=== PATIENT | male | born 1965 | race Caucasian/White ===

== ENCOUNTER 2025-07-23 08:53 | Inpatient (IN) ==
--- NOTE | 2025-06-20 14:18 | PAT Medication Instructions ---
Medication Instructions Date of Service June 20, 2025 Home Medications adalimumab 40 mg/0.8 mL subcutaneous syringe kit (Humira) 40 mg subcut Q14D atorvastatin 10 mg tablet 10 mg PO QPM brimonidine 0.2 %-timolol 0.5 % eye drops 1 drp OPR BID budesonide 9 mg capsule,extended release 9 mg PO QAM cyanocobalamin (vitamin B-12) 500 mcg tablet (Vitamin B-12) 500 mcg PO QAM lisinopril 20 mg tablet 20 mg PO QPM rivaroxaban 10 mg tablet (Xarelto) 10 mg PO QPM wheat dextrin 1 gram tablet (Benefiber (wheat dextrin)) 1 g PO BID ASK your prescriber and surgeon adalimumab 40 mg/0.8 mL subcutaneous syringe kit (Humira) 40 mg subcut Q14D rivaroxaban 10 mg tablet (Xarelto) 10 mg PO QPM DO NOT take the morning of surgery budesonide 9 mg capsule,extended release 9 mg PO QAM cyanocobalamin (vitamin B-12) 500 mcg tablet (Vitamin B-12) 500 mcg PO QAM wheat dextrin 1 gram tablet (Benefiber (wheat dextrin)) 1 g PO BID Take morning of surgery With a small sip of water, OTHERWISE NOTHING TO EAT OR DRINK AFTER MIDNIGHT: brimonidine 0.2 %-timolol 0.5 % eye drops 1 drp OPR BID Take evening before surgery atorvastatin 10 mg tablet 10 mg PO QPM brimonidine 0.2 %-timolol 0.5 % eye drops 1 drp OPR BID lisinopril 20 mg tablet 20 mg PO QPM wheat dextrin 1 gram tablet (Benefiber (wheat dextrin)) 1 g PO BID Other Notes If you have any questions please call us at [phone] or [phone] or [phone] or [phone]
--- NOTE | 2025-06-26 14:51 | Anesthesiology Consultation ---
Date of Service June 26, 2025 Assessment & Plan (1) Encounter for pre-operative examination: - awaiting surgeon ordered PCP clearance, Dr. Ray Holly. Chart Review Chart Review: Pending: Refer to Additional Notes / Consult section and Patient seen in Pre Admission Testing Teaching & Discussion Pre-Anesthesia Teaching/Discussion Notes: Instructed NPO after midnight before surgery, except medications with 15 cc of water. Medication instructions provided according to the PAT guidelines. History Surgery Operation Date: 07/23/25 07:45 Proposed Procedures p L3-S1 Decompression and Fusion - Jim Thompson DO Height/Weight Height: 5 ft 11 in Weight: 103.1 kg Allergies Allergy/AdvReac Type Severity Reaction Status Date / Time amoxicillin Allergy Hives Verified 06/20/25 13:16 Medications Home Medications Medication Instructions Recorded Confirmed Last Taken adalimumab 40 mg/0.8 mL 40 mg subcut Q14D 06/20/25 06/20/25 Unknown subcutaneous syringe kit (Humira) atorvastatin 10 mg tablet 10 mg PO QPM 06/20/25 06/20/25 Unknown brimonidine 0.2 %-timolol 0.5 % 1 drp OPR BID 06/20/25 06/20/25 Unknown eye drops budesonide 9 mg capsule,extended 9 mg PO QAM 06/20/25 06/20/25 Unknown release cyanocobalamin (vitamin B-12) 500 500 mcg PO QAM 06/20/25 06/20/25 Unknown mcg tablet (Vitamin B-12) lisinopril 20 mg tablet 20 mg PO QPM 06/20/25 06/20/25 Unknown rivaroxaban 10 mg tablet (Xarelto) 10 mg PO QPM 06/20/25 06/20/25 Unknown wheat dextrin 1 gram tablet 1 g PO BID 06/20/25 06/20/25 Unknown (Benefiber (wheat dextrin)) Past Medical History Medical History (Updated 06/26/25 @ 15:39 by Maryuri Dubon PA-C) Fracture of fifth metatarsal bone of left foot (~2023) Fracture discovered late 2023 Follows with podiatry-"no intervention deemed necessary by doctor" Still has discomfort from it "as it is still healing" HLD (hyperlipidemia) HTN (hypertension) controlled, stable per pt Hx of deep venous thrombosis (~2022) 2023, behind left knee, unprovoked per cardio, currently on Xarelto Hx of vertigo "Very rare" Increased intraocular pressure follows with ophthalmology-s/p laser treatment, right eye did not respond as well-using eye drops regularly Peripheral neuropathy feet Tinnitus intermittent, not always associated with vertigo Ulcerative colitis reports recent flare currently tapering off budesonide Patient denies h/o stroke, seizures, heart attack, heart failure, DM, or blood transfusions. Exercise / Class Metabolic Activity II 4-5 Yardwork/Stairs/Walk up hill (denies chest discomfort or shortness of breath with one flight of stairs) Past Family History Family History Father Prostate cancer Mother Stomach cancer Grandfather (Paternal) Colorectal cancer Brother Tremor of both hands Past Surgical History Surgical History H/O vasectomy done at same time as lap elder History of colonoscopy History of esophagogastroduodenoscopy (EGD) Hx laparoscopic cholecystectomy vasectomy done at same time Hx of LASIK Hx of umbilical hernia repair ~2021 Hx of wisdom tooth extraction Past Anesthesia History No Hx of Anesthesia Complications and Other (father () awareness during anesthesia) History of PONV No Hx of PONV and Hx of Motion Sickness Social History Smoking Status: Never smoker Do You Dip or Chew Tobacco: No Hx Alcohol Use: No Hx Substance Use: No substance use type: does not use Review of Systems Light snoring, denies witnessed apneas. Patient denies chest pain, shortness of breath, dyspnea on exertion, fever, chills, cough, wheezing, or palpitations. Physical Exam Vital Signs Vitals BP 155/99 (Patient expresses some stress regarding surgery, he also had caffeine today) P 54 TEMP 98.1 SP02 96% on RA RESP 18 Physical Patient resting comfortably in chair in no acute distress, alert and oriented, responding appropriately throughout visit Full cervical extension range of motion without pain TMD 3.5 finger breadths Mallampati Score 2 Dentition: intact, denies chipped or loose teeth, caps/crowns, implants or bridges Lungs: normal respiratory effort. Good air movement, clear throughout to auscultation, no adventitious breath sounds Cardiac: regular rate and rhythm, no murmurs noted Carotid arteries: negative bruit bilat Lab Results Anesthesia Preop Results Results Anesthesia Widget: WBC 8.60 K/ul (4.8-10.8) 06/26/25 Hgb 15.5 g/dl (14.0-18.0) 06/26/25 Hct 47.0 % (42.0-52.0) 06/26/25 Plt 195 K/uL (130-400) 06/26/25 Na 140 mmol/L (136-145) 06/26/25 K 4.6 mmol/L (3.5-5.1) 06/26/25 Cl 103 mmol/L (98-107) 06/26/25 CO2 32 mmol/L (21-32) 06/26/25 BUN 24 mg/dl (6-23) H 06/26/25 Creat 1.13 mg/dl (0.6-1.4) 06/26/25 Glucose Level 94 mg/dl (70-99(Fasting)) 06/26/25 PT 10.3 Seconds (9.0-12.0) 06/26/25 PTT 25 Seconds (21-31) 06/26/25 INR 0.9 (0.9-1.1) 06/26/25 Urine Color Yellow 06/26/25 Urine Appearance Clear (Clear) 06/26/25 Urine pH 6.0 (4.5-7.5) 06/26/25 Urine Specific [place] 1.021 (1.000-1.030) 06/26/25 Urine Protein Trace (Negative) H 06/26/25 Urine Glucose (UA) Negative (Negative) 06/26/25 Urine Ketones Negative (Negative) 06/26/25 Urine Blood Negative (Negative) 06/26/25 Urine Nitrite Negative (Negative) 06/26/25 Urine Bilirubin Negative (Negative) 06/26/25 Urine Urobilinogen Negative (Negative) 06/26/25 Urine Leukocyte Esterase Negative (Negative) 06/26/25 Urine WBC (Auto) 0-5 /hpf (0-5) 06/26/25 Urine RBC (Auto) 0-2 /hpf (0-2) 06/26/25 Urine Hyaline Casts (Auto) 0-2 /lpf (0-2) 06/26/25 Urine Epithelial Cells (Auto) 0-2 /hpf (0-2) 06/26/25 Urine Bacteria (Auto) None Seen (None Seen) 06/26/25 Blood Type B Positive 06/26/25 Antibody Screen NEGATIVE 06/26/25 Testing Electrocardiogram Date: 06/26/25 Sinus bradycardia, rate 48 bpm Chest X-Ray Date: 06/26/25 No acute findings. Echocardiogram Date: 01/30/21 EF 55-60% Normal LV wall motion No significant valvular pathology
[2025-07-23] MEDS: VANCOMYCIN HCL 1,500 MG in SODIUM CHLORIDE 0.9% 500 ML IV SCH (09:28)
[2025-07-23] MEDS: CeleBREX 200 MG CAP PO SCH (09:29)
[2025-07-23] MEDS: ACETAMINOPHEN 500 MG TAB PO SCH (09:29)
[2025-07-23] MEDS: LR 15ML/HR IV SCH (09:29)
[2025-07-23] MEDS: GABAPENTIN 600 MG DOSE PO SCH (09:30)
[2025-07-23] MEDS: LR 60ML/HR IV SCH (09:49)
[2025-07-23] MEDS ORDERED: ROCURONIUM BROMIDE 10 MG/ML 5 ML VIAL IV ONE ×2 (11:13→13:39)
[2025-07-23] MEDS ORDERED: DEXAMETHASONE SOD INJ 4 MG/ML VIAL ONE (11:13)
[2025-07-23] MEDS ORDERED: MIDAZOLAM HCL 1 MG/ML 2ML VIAL ONE (11:13)
[2025-07-23] MEDS ORDERED: PROPOFOL IV EMULSION 10 MG/ML 20 ML VIAL IV ONE (11:13)
[2025-07-23] MEDS ORDERED: ONDANSETRON INJ 2 MG/ML 2 ML VIAL ONE (11:13)
[2025-07-23] MEDS ORDERED: LIDOCAINE 2% 2 ML VIAL/AMP(20MG/ML) INFIL ONE ×2 (11:13)
[2025-07-23] MEDS ORDERED: PHENYLEPHRINE 100MCG/ML 5ML SYR ONE ×2 (11:33→13:36)
[2025-07-23] MEDS ORDERED: ATROPINE SULFATE 0.1 MG/ML 10ML SYR IV PRN (11:36)
[2025-07-23] MEDS ORDERED: HYDROmorphone INJ 1 MG/ML SYRINGE IV PRN ×2 (11:36→17:20)
[2025-07-23] MEDS ORDERED: PROMETHAZINE HCL 6.25 MG in SODIUM CHLORIDE 0.9% 50 ML IV PRN (11:36)
[2025-07-23] MEDS ORDERED: PHENYLEPHRINE HCL 10 MG/ML VIAL ONE (11:49)
--- NOTE | 2025-07-23 12:53 | History & Physical Bridge Note ---
Date of Service July 23, 2025 History & Physical Bridge Note I have examined the patient, reviewed the History & Physical and in the interval since the performance of the History & Physical I have noted the following changes of clinical significance: no changes noted
--- NOTE | 2025-07-23 12:54 | History & Physical Report ---
Date of Service July 23, 2025 Assessment & Plan (1) Multilevel lumbosacral spondylosis with radiculopathy: Plan: L4-L5 decompression and fusion, possible L3-L4 and L5-S1 decompression fusion History of Present Illness Chief Complaint: Back and bilateral leg pain Primary Care Provider: Ray Reilly MD This is a 59-year-old male who presents with chronic persistent back and bilateral leg pain after failing course of nonoperative care is here for surgical intervention. Allergies Allergy/AdvReac Type Severity Reaction Status Date / Time amoxicillin Allergy Hives Verified 07/23/25 09:15 Home Medications Medication Instructions Recorded Confirmed Type adalimumab 40 mg/0.8 mL 40 mg subcut Q14D 06/20/25 07/23/25 History subcutaneous syringe kit (Humira) atorvastatin 10 mg tablet 10 mg PO QPM 06/20/25 07/23/25 History brimonidine 0.2 %-timolol 0.5 % 1 drp OPR BID 06/20/25 07/23/25 History eye drops budesonide 9 mg capsule,extended 9 mg PO QAM 06/20/25 07/23/25 History release cyanocobalamin (vitamin B-12) 500 500 mcg PO QAM 06/20/25 07/23/25 History mcg tablet (Vitamin B-12) lisinopril 20 mg tablet 20 mg PO QPM 06/20/25 07/23/25 History rivaroxaban 10 mg tablet (Xarelto) 10 mg PO QPM 06/20/25 07/23/25 History wheat dextrin 1 gram tablet 1 g PO BID 06/20/25 07/23/25 History (Benefiber (wheat dextrin)) Past Med/Surg History Problem List (Updated 07/23/25 @ 12:53 by Jim Thompson DO) Multilevel lumbosacral spondylosis with radiculopathy Encounter for pre-operative examination Ulcerative colitis Vertigo Peripheral neuropathy Medical History (Updated 07/23/25 @ 12:53 by Jim Thompson DO) Increased intraocular pressure follows with ophthalmology-s/p laser treatment, right eye did not respond as well-using eye drops regularly Tinnitus intermittent, not always associated with vertigo Fracture of fifth metatarsal bone of left foot (~2023) Fracture discovered late 2023 Follows with podiatry-"no intervention deemed necessary by doctor" Still has discomfort from it "as it is still healing" Hx of deep venous thrombosis (~2022) 2022, behind left knee, unprovoked per cardio, currently on Xarelto HLD (hyperlipidemia) HTN (hypertension) controlled, stable per pt Peripheral neuropathy feet Hx of vertigo "Very rare" Ulcerative colitis reports recent flare currently tapering off budesonide Surgical History History of colonoscopy History of esophagogastroduodenoscopy (EGD) Hx of wisdom tooth extraction Hx of umbilical hernia repair ~2021 Hx laparoscopic cholecystectomy vasectomy done at same time Hx of LASIK H/O vasectomy done at same time as lap elder Family History Father Prostate cancer Mother Stomach cancer Grandfather (Paternal) Colorectal cancer Brother Tremor of both hands Social History (Updated 08/15/20 @ 09:38 by Sharon Lea) Smoking Status: Never smoker Second Hand Exposure: No; Do You Dip or Chew Tobacco: No; Tobacco Cessation Education Requested by Patient: No Hx Alcohol Use: No Hx Substance Use: No Preferred Language: French Communication Ability: Effective Seed Cone Picker Required: No Beliefs That Will Affect Care: None Current Living Situation: Spouse current occupational status: employed current occupation: [employer] Other Information That Helps Us Care for You: No Feels Safe at Home: Yes Safety Concerns: Feels Safe At This Time Assistive Devices: Glasses Physical Exam Physical Exam: Patient is alert and oriented heart regular in rhythm Lungs clear Results & Data Results & Data Vital Signs (Past 12 Hours) Vital Signs Temp Pulse Resp BP Pulse Ox O2 Del Method 07/23/25 09:44 36.5 C 51 L 18 181/98 H 97 Room Air
[2025-07-23] MEDS ORDERED: ePHEDrine sulfate 50 MG/5 ML SYR ONE (13:33)
[2025-07-23] MEDS ORDERED: ceFAZolin 330 MG/ML 1 GM VIAL ONE (13:38)
[2025-07-23] MEDS: BUPIVACAINE/EPINEPHRINE 0.25% 1:200,000 30 ML VIAL ONE (13:50)
[2025-07-23] MEDS ORDERED: SUGAMMADEX SODIUM 200 MG/2 ML VIAL IV ONE (14:32)
[2025-07-23] MEDS: SURGICEL ABSORB HEMOSTAT 2IN X 14IN TOP ONE (15:02)
[2025-07-23] MEDS: FLOSEAL HEMOSTATIC MATRIX 10ML TOP ONE (15:16)
[2025-07-23] MEDS: ceFAZolin 330 MG/ML 1 GM VIAL ONE (15:22)
--- NOTE | 2025-07-23 15:38 | Operative Report ---
Post Operative Report Pre & Post Diagnosis Operation Date: 07/23/25 11:55 Pre-Op Diagnosis: #1 multilevel lumbar spondylosis with radiculopathy #2 lumbar spondylolisthesis L5-S1 with radiculopathy Post-Op Diagnosis: Same I identified the patient and participated in the time-out.: Yes Procedure Operation Date: 07/23/25 11:55 Actual Procedures #1 lumbar decompression bilateral medial facetectomies and foraminotomies L3-L4, L4-L5 L5-S1. #2 posterior spinal fusion L3-S1. #3 placement posterior segmental instrumentation L3-S1 using camber. #4 interbody fusion L3-L4, L4-L5 L5-S1. #5 placement of Spira 12 x 26 mm at L3-L4, 12 x 26 mm at L4-L5 and 13 x 26 mm x 2 at L5-S1. #6 placement of Proteus combined with Koros bone graft in the posterior lateral gutters and os design interbody space. #7 application of versa wrap over the exposed dura. Surgeon Jim Thompson, Rough Rice Grader Kizzy Cassidy Estimated Blood Loss 700 Findings Consistent with Post-Op Diagnosis Specimens None Indications This is a 59-year-old male who presents publish diagnosis with a failed extensive course of nonoperative care is here for surgical intervention. Description of Procedure Patient was met with identified informed consent obtained. Patient was then taken to the operative suite underwent and patient placed in a prone position on the Josemanuel table top of the Bienvenido frame. All bony prominences well-padded eyes inspected to ensure no external pressure placed upon them. This point the lumbar spine was prepped and draped in normal sterile fashion. Sharp dissection with the assistance of Bovie cautery from down to and exposing the lamina transverse processes of L3 L4-5 bilaterally. Obvious bilateral pars defect noted at L5 bilaterally. Patient had marked vacuum phenomenon at L5-S1 with fluoroscopic preop imaging. I did perform a complete laminectomy of L5 including bilateral foraminotomies addressing severe neural foraminal stenosis and gross neural compression. Then performed a decompression bilateral medial facetectomies and foraminotomies at L4 addressing severe subarticular and foraminal disease. Lastly in the process of decompressing L3 I had to perform aggressive medial facetectomies to address the subarticular neural compression and foraminal disease rendering this level unstable and therefore requiring fusion. Pedicle screws then placed at L3-L4-L5 and S1 levels bilaterally with assistance of fluoroscopy and the purposes floresita contoured and placed. By way of a transforaminal approach on the right a discectomy of L5-S1 was performed endplates guided to subcortical and bone and a 13 x 26 mm Spira cage tapped in position. Then proceeded to the left transforaminal region at L5-S1. Again discectomy performed. Endplates guided to subcortically bone. A second 13 x 26 mm Spira cage was then tapped in position. Then proceeded to L4-[address] a trans from approach on the right and complete discectomy was performed. Endplates guided to subcortical bleeding bone and a 12 x 26 mm Spira cage tapped in position. Lastly approached L3-L4 and by way of the transforaminal approach on the left a complete discectomy was performed. Endplates guided to subcortical mean bone and a 12 x 26 mm Spira cage tapped in position. Please note all cages were packed with os design bone graft. The rods were then compressed locked in a final position bilaterally. Final x-rays were obtained demonstrating marked reduction of the spondylolisthesis and degenerative scoliosis. The transverse processes of L3-L4-L5 sacral ala burred to subcortical and bone. Proteus combined with Koros bone graft placed in the posterior gutters. Versa wrap placed over the exposed dura. 15 round MAYTE drain inserted. The incision was then closed with 1 Vicryl fascia 2-0 Vicryl subcutaneously and 4 Monocryl for final skin closure. Steri-Strips sterile dressing placed. Patient waken taken PACU stable condition. Please note Kizzy Cassidy was present of the entire procedure involved in patient positioning complex portions of the procedure and final skin closure. Im ordering 10 grams of Collagen Powder (HCPCS A6010 Primary Dressing) and 10 bordered super absorbent (HCPCS A6196 Secondary Dressing) to treat an incision wound that was caused by a spine procedure. The incision is approximately 2 cm(W) x 2 cm(L) down to the spinal column and epidural space 2 cm (D) in size and is a full thickness wound showing no signs of infection. Collagen comes in 1 gram packets so 10 packets were ordered. Given the size of the wound, with moderate exudate I chose to order a 10 day supply. The patient will be provided instructions for proper application of the collagen wound kit. The patient will be asked to apply the collagen powder daily and then cover it with sterile dressings dispensed. Collagen was selected as I expect the collagen to attract monocytes and fibroblasts, act as a sacrificial substrate for MMPs, and ultimately proved a matrix for tissue and vessel growth. The collagen will act as a primary dressing in this scenario. It is medically necessary for proper healing of these wounds to improve bioavailability and contact with each wound surface, this is also to help prevent infection of wounds and promote healing ultimately leading to a better healing outcome and limit the risk of infection. I attest to the content of the Intraoperative Record and any orders documented therein. Any exceptions are noted below.
--- NOTE | 2025-07-23 16:04 | Fluoroscopy Report ---
FL lumbar spine 2-3V CLINICAL HISTORY: L4-L5 DECOMPRESSION AND FUSION POSSIBLE L3-L4 FUSION COMPARISON STUDY: None FLUOROSCOPY TIME: 20 seconds FLUOROSCOPY IMAGES: 3 EXPOSURE DOSE: 23 mGy FINDINGS: Fluoroscopy was provided for lumbar fusion. IMPRESSION: Intraoperative fluoroscopy. ACT 112: Negative or not required by law. Electronically signed by: Vicente Rey M.D. 07/23/2025 4:03 PM
[2025-07-23] MEDS: ONDANSETRON INJ 2 MG/ML 2 ML VIAL IV PRN ×2 (17:10→21:13)
[2025-07-23] MEDS ORDERED: LORazepam 0.5 MG TAB PO PRN (17:20)
[2025-07-23] MEDS ORDERED: METOCLOPRAMIDE HCL INJ 5 MG/ML 2 ML VIAL IV PRN (17:20)
[2025-07-23] MEDS ORDERED: LORazepam Inj 0.5 MG in SYRINGE 0.25 ML IV PRN (17:20)
[2025-07-23] MEDS ORDERED: PROMETHAZINE 12.5 MG/50.5 ML BAG IV PRN (17:20)
[2025-07-23] MEDS ORDERED: SOD PHOSPHATE/SOD BIPHOSPHATE ENEMA 132 ML BTL PR PRN (17:20)
[2025-07-23] MEDS ORDERED: diphenhydrAMINE Capsule 25 MG CAP PO PRN (17:20)
[2025-07-23] MEDS ORDERED: ALUMINUM/MAGNESIUM SUSP 30 ML UDC PO PRN (17:20)
[2025-07-23] MEDS ORDERED: MAGNESIUM HYDROXIDE SUSP 30 ML UDC PO PRN (17:20)
[2025-07-23] MEDS ORDERED: DO NOT ADMINISTER FLU VACCINE PRN (17:20)
[2025-07-23] MEDS ORDERED: ONDANSETRON 4 MG OD TAB PO PRN (17:20)
[2025-07-23] MEDS ORDERED: NALOXONE HCL 0.4 MG/1 ML VIAL/CARP IV PRN (17:20)
[2025-07-23] MEDS ORDERED: DO NOT ADMINISTER PNEUMOCOCCAL VACCINE PRN (17:20)
[2025-07-23] MEDS ORDERED: HYDROmorphone INJ 0.5 MG/0.5 ML SYR IV PRN (17:20)
[2025-07-23] MEDS ORDERED: FAMOTIDINE 20 MG TAB PO PRN (17:20)
[2025-07-23] MEDS: SODIUM CHLORIDE 0.9% 1,000 ML IV SCH (18:16)
--- NOTE | 2025-07-23 18:49 | Consultation ---
Date of Consultation July 23, 2025 Assessment & Plan (1) Multilevel lumbosacral spondylosis with radiculopathy: (2) Ulcerative colitis: (3) Peripheral neuropathy: (4) Hx of deep venous thrombosis: (5) HLD (hyperlipidemia): (6) HTN (hypertension): Plan 59 yo male with pmhx of ulcerative colitis (on humira, budesonide), HTN, HLD, GERD, superficial thrombophlebitis who is consulted for post operative medical management. #Lumbar Radiculopathy #S/p Lumbar Decompression and Fusion -POD 0, no immediate post operative complications per operative report -700 cc blood loss per operative report -possible discharge date of per patient, dispo per ortho spine Plan: -trend CBC, Hgb, creatinine post operatively -prn medications optimized and reduced to reduce polypharmacy/delirium risk -continue lisinopril post operatively -encourage IS -monitor for bowel movement post op #Ulcerative Colitis -on humira and budesonide Plan: -continue home budesonide #HTN #HLD -continue lisinopril, atorvastatin #Superficial Thrombophlebitis -blood thinner per ortho I spent a total of 60 minutes in direct patient care, including [id number] time with the patient and/or family, reviewing medical records, ordering and reviewing diagnostic tests, and coordinating care with other healthcare providers. This time includes: history taking, physical examination, medical decision making, counseling, ECG interpretation, imaging interpretation, lab interpretation, orders, and education, excluding time spent in the performance of separately billed services. History of Present Illness Requesting Physician: Dr. Thompson Reason for Consultation: -medical management Attending Physician: Jim Thompson, DO History of Present Illness 59 yo male with pmhx of ulcerative colitis (on humira, budesonide), HTN, HLD, GERD, superficial thrombophlebitis who is consulted for post operative medical management. Patient admitted per ortho spine for lumbar decompression and fusion. In the OR, patient had lumbar decompression bilateral medial facetectomies and foraminotomies L3-L4, L4-L5 L5-S1, posterior spinal fusion L3-S1, placement posterior segmental instrumentation L3-S1 using camber, interbody fusion L3-L4, L4-L5 L5-S1, placement of Spira 12 x 26 mm at L3-L4, 12 x 26 mm at L4-L5 and 13 x 26 mm x 2 at L5-S1, placement of Proteus combined with Koros bone graft in the posterior lateral gutters and os design interbody space, application of versa wrap over the exposed dura, procedures performed. Estimated blood loss was 700 cc, no immediate post operative complications per ortho spine report. Patient seen and examined at bedside. Patient still groggy post procedure but alert and orriented x3. present as well. Patient states he has some pain around his incision site and it hurts to move his legs, however pain is bearable with pain medication. States that he has some nausea as well post procedure. No vomiting, chest pain, SOB, headache, diarrhea, other associated symptoms. Anticipated discharge date per patient is . Allergies Allergy/AdvReac Type Severity Reaction Status Date / Time amoxicillin Allergy Hives Verified 07/23/25 09:15 Home Medications Medication Instructions Recorded Confirmed Type adalimumab 40 mg/0.8 mL 40 mg subcut Q14D 06/20/25 07/23/25 History subcutaneous syringe kit (Humira) atorvastatin 10 mg tablet 10 mg PO QPM 06/20/25 07/23/25 History brimonidine 0.2 %-timolol 0.5 % 1 drp OPR BID 06/20/25 07/23/25 History eye drops budesonide 9 mg capsule,extended 9 mg PO QAM 06/20/25 07/23/25 History release cyanocobalamin (vitamin B-12) 500 500 mcg PO QAM 06/20/25 07/23/25 History mcg tablet (Vitamin B-12) lisinopril 20 mg tablet 20 mg PO QPM 06/20/25 07/23/25 History rivaroxaban 10 mg tablet (Xarelto) 10 mg PO QPM 06/20/25 07/23/25 History wheat dextrin 1 gram tablet 1 g PO BID 06/20/25 07/23/25 History (Benefiber (wheat dextrin)) Patient History Medical History (Updated 07/23/25 @ 12:53 by Jim Thompson DO) Increased intraocular pressure follows with ophthalmology-s/p laser treatment, right eye did not respond as well-using eye drops regularly Tinnitus intermittent, not always associated with vertigo Fracture of fifth metatarsal bone of left foot (~2023) Fracture discovered late 2023 Follows with podiatry-"no intervention deemed necessary by doctor" Still has discomfort from it "as it is still healing" Hx of deep venous thrombosis (~2022) 2022, behind left knee, unprovoked per cardio, currently on Xarelto HLD (hyperlipidemia) HTN (hypertension) controlled, stable per pt Peripheral neuropathy feet Hx of vertigo "Very rare" Ulcerative colitis reports recent flare currently tapering off budesonide Surgical History History of colonoscopy History of esophagogastroduodenoscopy (EGD) Hx of wisdom tooth extraction Hx of umbilical hernia repair ~2021 Hx laparoscopic cholecystectomy vasectomy done at same time Hx of LASIK H/O vasectomy done at same time as lap elder Family History Father Prostate cancer Mother Stomach cancer Grandfather (Paternal) Colorectal cancer Brother Tremor of both hands Social History (Updated 08/15/20 @ 09:38 by Sharon Lea) Smoking Status: Never smoker Second Hand Exposure: No; Do You Dip or Chew Tobacco: No; Tobacco Cessation Education Requested by Patient: No Hx Alcohol Use: No Hx Substance Use: No Preferred Language: Armenian Communication Ability: Effective Youth Services Librarian Required: No Beliefs That Will Affect Care: None Current Living Situation: Spouse current occupational status: employed 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 External ears normal. No rhinorrhea. Moist mucous membranes. Neck: Supple, full range of motion, no observable masses, No meningeal sign. Lungs: No Respiratory distress. CV: RRR, no edema. Abdomen: Soft, nondistended, No rebound tenderness. MSK: No joint swelling, no redness. MAYTE drain present on right side with bright red blood present Skin: No rashes, petechiae, lesions. Normal color per patient. Neuro: Normal Gait, Grossly intact. Psych: Appropriate for situation. Results & Data Vital Signs (Past 12 Hours) Vital Signs Temp Pulse Pulse Resp BP Pulse Ox O2 Del Method 07/23/25 18:19 36.5 C 56 L 18 144/86 H 98 Nasal Cannula 07/23/25 17:48 36.5 C 52 L 16 167/89 H 95 Nasal Cannula 07/23/25 17:34 Nasal Cannula 07/23/25 17:20 36.5 C 53 L 20 162/91 H 98 Nasal Cannula 07/23/25 16:54 53 L 13 160/91 H 97 Oxymask 07/23/25 16:40 36.7 C 53 L 14 158/91 H 97 Oxymask 07/23/25 16:30 50 L 13 145/86 H 98 Oxymask 07/23/25 16:20 52 L 12 149/90 H 99 Oxymask 07/23/25 16:10 59 L 15 146/91 H 99 Oxymask 07/23/25 16:00 54 L 12 130/78 95 Oxymask 07/23/25 15:51 36 C L 59 L 19 144/83 H 93 Oxymask 07/23/25 09:44 36.5 C 51 L 18 181/98 H 97 Room Air O2 Flow Rate 07/23/25 18:19 3 07/23/25 17:48 3 07/23/25 17:34 3 07/23/25 17:20 3 07/23/25 16:54 2 07/23/25 16:40 2 07/23/25 16:30 6 07/23/25 16:20 6 07/23/25 16:10 8 07/23/25 16:00 8 07/23/25 15:51 8 07/23/25 09:44 Medications Administered Lactated Ringer's (Lr) 1,000 mls @ 15 mls/hr IV .Q24H PERI Stop: 07/24/25 05:59 Last Infusion: 07/23/25 13:07 Dose: Infused Documented By: Admin: 07/23/25 09:29 Dose: 15 mls/hr Documented By: DSW Lactated Ringer's (Lr) 1,000 mls @ 60 mls/hr IV .[id number] PERI Stop: 07/23/25 22:39 Last Admin: 07/23/25 09:49 Dose: Not Given Documented By: DSW Vancomycin HCl 1,500 mg/ (Sodium Chloride) 530 mls @ 200 mls/hr IV PREOP PERI Stop: 07/24/25 05:59 Last Infusion: 07/23/25 17:52 Dose: Infused Documented By: Admin: 07/23/25 09:28 Dose: 200 mls/hr Documented By: CODY Sodium Chloride (Nss) 1,000 mls @ 100 mls/hr IV .Q10H PERI Stop: 07/26/25 17:19 Last Admin: 07/23/25 18:16 Dose: 100 mls/hr Documented By: RAMONE Ondansetron HCl (Ondansetron Inj 2 Mg/Ml 2 Ml Vial) 4 mg IV ONCE PRN PRN Reason: PACU Use Only-Nausea/Vomiting Stop: 07/23/25 19:36 Last Admin: 07/23/25 17:10 Dose: 4 mg Documented By: GERARDO
--- NOTE | 2025-07-23 19:00 | Anesthesiology Progress Note ---
Date of Service July 23, 2025 Anesthesia Post Procedure Vital Signs Vital Signs: Temp Pulse Pulse Resp BP Pulse Ox O2 Del Method 07/23/25 18:19 36.5 C 56 L 18 144/86 H 98 Nasal Cannula 07/23/25 17:48 36.5 C 52 L 16 167/89 H 95 Nasal Cannula 07/23/25 17:34 Nasal Cannula 07/23/25 17:20 36.5 C 53 L 20 162/91 H 98 Nasal Cannula 07/23/25 16:54 53 L 13 160/91 H 97 Oxymask 07/23/25 16:40 36.7 C 53 L 14 158/91 H 97 Oxymask 07/23/25 16:30 50 L 13 145/86 H 98 Oxymask 07/23/25 16:20 52 L 12 149/90 H 99 Oxymask 07/23/25 16:10 59 L 15 146/91 H 99 Oxymask 07/23/25 16:00 54 L 12 130/78 95 Oxymask 07/23/25 15:51 36 C L 59 L 19 144/83 H 93 Oxymask 07/23/25 09:44 36.5 C 51 L 18 181/98 H 97 Room Air O2 Flow Rate 07/23/25 18:19 3 07/23/25 17:48 3 07/23/25 17:34 3 07/23/25 17:20 3 07/23/25 16:54 2 07/23/25 16:40 2 07/23/25 16:30 6 07/23/25 16:20 6 07/23/25 16:10 8 07/23/25 16:00 8 07/23/25 15:51 8 07/23/25 09:44 Pain Intensity Lower Back: Pain Intensity: 8 Transfer of Care Handoff Completed per policy Notes Mental Status: alert / awake / arousable Patient Amnestic to Procedure: Yes Nausea / Vomiting: adequately controlled Pain: adequately controlled Airway Patency, RR, SpO2: stable & adequate BP & HR: stable & adequate Hydration State: stable & adequate Anesthetic Complications: no major complications apparent
[2025-07-23] MEDS: DOCUSATE SODIUM/SENNA 50/8.6MG TAB PO SCH (21:01)
[2025-07-23] MEDS: ATORVASTATIN 10 MG TAB PO SCH (21:01)
[2025-07-24] MEDS: POLYETHYLENE (MIRALAX) 17 GM PACK PO SCH (05:33)
[2025-07-24] MEDS: ACETAMINOPHEN 1,000 MG/100 ML VIAL IV PRN (05:42)
[2025-07-24 06:31] LABS: Hematocrit (blood only) 33.6 % (42.0-52.0); Hemoglobin 10.9 g/dl (14.0-18.0); Immature Granulocytes # (auto) 0.07 K/uL (0.01-0.20); Immature Granulocytes % (auto) 0.5 %; Mean Corpuscular Hemoglobin 31.8 pg (25.0-34.0); Mean Corpuscular Volume 98.0 fL (80.0-100.0); Platelet Count 124 K/uL (130-400); RDW Standard Deviation 49.0 fL (36.4-46.3); Red Blood Count 3.43 M/uL (4.70-6.10); White Blood Count 12.76 K/ul (4.8-10.8)
[2025-07-24 06:47] LABS: Anion Gap 6.0 (3-11); Blood Urea Nitrogen 22.0 mg/dl (6-23); Calcium 7.9 mg/dl (8.6-10.3); Carbon Dioxide 29.0 mmol/L (21-32); Chloride 105.0 mmol/L (98-107); Creatinine Clr Calc Pharmacy 81.7 ml/min; Glucose 118.0 mg/dl (70-99(Fasting)); Potassium 4.6 mmol/L (3.5-5.1); Sodium 140.0 mmol/L (136-145)
[2025-07-24] MEDS: SCOPOLAMINE 1 MG/72 HR TDSY PATCH TD SCH (09:56)
[2025-07-24] MEDS: CYANOCOBALAMIN (B-12) 500 MCG TABLET PO SCH (09:56)
[2025-07-24] MEDS: dexAMETHasone 6 MG in SYRINGE 0 ML IV SCH (10:13)
[2025-07-24] MEDS: BUDESONIDE EC 3 MG CAP PO SCH (10:13)
--- NOTE | 2025-07-24 10:13 | Orthopedic Progress Note ---
Date of Service July 24, 2025 Assessment & Plan (1) Multilevel lumbosacral spondylosis with radiculopathy: Plan: At this time initiate physical therapy monitor his MAYTE output over discharge home next few days. Admission and Anticipated Discharge Date Admission Date: July 23, 2025 Subjective Back pain controlled no leg pain. Struggling with some hypertension. Physical Exam Physical Exam: Patient seen by the bedside. He is neurologic intact. MAYTE drain functioning. Results & Data Vital Signs (Past 12 Hours) Vital Signs Temp Pulse Resp BP Pulse Ox O2 Del Method O2 Flow Rate 07/24/25 07:12 36.7 C 60 16 110/68 95 Room Air 07/24/25 05:39 108/65 07/24/25 03:00 37.0 C 74 18 102/60 96 Nasal Cannula 1 07/23/25 23:00 36.5 C 68 18 131/74 95 Room Air Queries Orthopedic Spine Acute Posthemorrhagic Anemia: Yes Obesity: Yes
[2025-07-24] MEDS: SODIUM CHLORIDE 0.9% 1,000 ML IV ONE (11:25)
[2025-07-24 11:53] LABS: Hematocrit (blood only) 33.5 % (42.0-52.0); Hemoglobin 10.8 g/dl (14.0-18.0)
--- NOTE | 2025-07-24 12:15 | Hospitalist Progress Note ---
Date of Service July 24, 2025 Assessment & Plan (1) Multilevel lumbosacral spondylosis with radiculopathy: (2) Acute postoperative anemia due to expected blood loss: (3) Orthostatic hypotension: (4) Ulcerative colitis: (5) Peripheral neuropathy: (6) Hx of deep venous thrombosis: (7) HLD (hyperlipidemia): (8) HTN (hypertension): Plan Patient is status post orthopedic lumbar surgery, significant postoperative anemia and blood loss with orthostasis. Continue to monitor hemoglobin, no indication for transfusion at this time IV fluid bolus Hold lisinopril Continue to hold Xarelto, LEATHA hose and SCDs for VTE prophylaxis Patient reports some chronic dizziness, trial scopolamine patch Leukocytosis due to steroids, no evidence of infection at this time Pain control as per attending at bedside updated with plan of care Admission and Anticipated Discharge Date Admission Date: July 23, 2025 Subjective Patient complains of some lightheadedness some dizziness with changing in position. No chest pain or shortness of breath. Patient significantly orthostatic when patient got up with physical therapy earlier this morning. Physical Exam Physical Exam: Constitutional: Alert, nontoxic HEENT: Mucous membranes moist. Lungs: Clear to auscultation, decreased, no wheezes rales or rhonchi CV: S1-S2, regular Abdomen: Soft, nontender, nondistended Extremities: No significant edema Musculoskeletal: MAYTE drain in place with sanguinous drainage Neuro: No focal deficits Psych: Cooperative, normal mood Results & Data Results & Data Vital Signs (Past 12 Hours) Vital Signs Temp Pulse Resp BP Pulse Ox O2 Del Method O2 Flow Rate 07/24/25 10:30 133/67 07/24/25 10:15 64/42 L 07/24/25 09:50 107/42 L 07/24/25 07:12 36.7 C 60 16 110/68 95 Room Air 07/24/25 05:39 108/65 07/24/25 03:00 37.0 C 74 18 102/60 96 Nasal Cannula 1 Diagnostic Findings Reviewed imaging, laboratory and diagnostic studies. Pertinent findings as below. WBCs 12.7 Hemoglobin 10.8, stable from this morning Electrolytes stable Creatinine 1.1 Estimated blood loss in OR 700 cc, MAYTE drain output 540 cc
[2025-07-24] MEDS: REMOVE TRANSDERM-SCOP PATCH SCH (15:46)
[2025-07-24] MEDS: CHECK SCOPOLAMINE PATCH PLACEMENT SCH (15:46)
[2025-07-24] MEDS: MECLIZINE HCL 25 MG TAB PO PRN (16:42)
[2025-07-24] MEDS: ACETAMINOPHEN 500 MG TAB PO PRN (18:25)
[2025-07-25 06:36] LABS: Hematocrit (blood only) 31.1 % (42.0-52.0); Hemoglobin 10.4 g/dl (14.0-18.0); Mean Corpuscular Hemoglobin 32.8 pg (25.0-34.0); Mean Corpuscular Volume 98.1 fL (80.0-100.0); Platelet Count 113 K/uL (130-400); RDW Standard Deviation 49.8 fL (36.4-46.3); Red Blood Count 3.17 M/uL (4.70-6.10); White Blood Count 9.36 K/ul (4.8-10.8)
[2025-07-25 07:10] LABS: Anion Gap 3.0 (3-11); Blood Urea Nitrogen 18.0 mg/dl (6-23); Calcium 8.1 mg/dl (8.6-10.3); Carbon Dioxide 30.0 mmol/L (21-32); Chloride 108.0 mmol/L (98-107); Creatinine Clr Calc Pharmacy 90.3 ml/min; Glucose 103.0 mg/dl (70-99(Fasting)); Potassium 4.3 mmol/L (3.5-5.1); Sodium 141.0 mmol/L (136-145)
--- NOTE | 2025-07-25 08:14 | Orthopedic Progress Note ---
Date of Service July 25, 2025 Assessment & Plan (1) Multilevel lumbosacral spondylosis with radiculopathy: Plan: At this time we will continue to attempt physical therapy. Ambulate as tolerated. Monitor MAYTE output. Hopefully discharge home in the next few days. Admission and Anticipated Discharge Date Admission Date: July 23, 2025 Subjective Back pain controlled leg pain improved. Struggling with hypotension and lightheadedness. Physical Exam Physical Exam: Patient is currently in bed. Neurologically intact. Distracted testing. Results & Data Vital Signs (Past 12 Hours) Vital Signs Temp Pulse Resp BP Pulse Ox O2 Del Method 07/25/25 07:42 36.7 C 71 18 111/63 93 Room Air 07/25/25 00:10 36.9 C 69 18 107/61 92 Room Air Queries Orthopedic Spine Acute Posthemorrhagic Anemia: Yes Obesity: Yes
[2025-07-25] MEDS: KETOROLAC 30 MG/ML VIAL IV PRN (08:57)
--- NOTE | 2025-07-25 14:14 | Hospitalist Progress Note ---
Date of Service July 25, 2025 Assessment & Plan (1) Multilevel lumbosacral spondylosis with radiculopathy: (2) Acute postoperative anemia due to expected blood loss: (3) Orthostatic hypotension: (4) Ulcerative colitis: (5) Peripheral neuropathy: (6) Hx of deep venous thrombosis: (7) HLD (hyperlipidemia): (8) HTN (hypertension): Plan Patient is status post orthopedic lumbar surgery, significant postoperative anemia and blood loss with orthostasis. Continue to monitor hemoglobin, no indication for transfusion at this time IV fluid bolus Hold lisinopril Continue to hold Xarelto, LEATHA hose and SCDs for VTE prophylaxis Patient reports some chronic dizziness, trial scopolamine patch Leukocytosis due to steroids, no evidence of infection at this time Pain control as per attending at bedside updated with plan of care 07/25 dizziness improving BP still on the lower side Hg stable IV NSS encouraged oral fluid intake hold Lisinopril resume Xarelto once ok with Ortho Pineda Mtz MD Admission and Anticipated Discharge Date Admission Date: July 23, 2025 Subjective seen resting in bed, comfortable states dizziness is better today still having significant back pain no chest pain, dyspnea, palpitations no other symptoms Review of Systems Review of Systems: all noted and negative except for above Physical Exam Physical Exam: General- oriented x 3, not in distress, speaks in sentences with no effort or accessory muscle use Eyes- anicteric Neck- no JVD Lungs- clear breath sounds bilaterally, no rales/wheezes Heart- normal rate, regular rhythm; no murmurs Abdomen- normal bowel sounds, nondistended, soft, no tenderness Back- dressing in place: dry, no bleeding or discharge drain in place: sero-sanguinous output noted Extremities- no pretibial edema, no calf tenderness Neuro- alert, oriented x 3; no gross focal neurologic deficits Skin- warm & dry Results & Data Results & Data Vital Signs (Past 12 Hours) Vital Signs Temp Pulse Resp BP Pulse Ox O2 Del Method 07/25/25 11:33 36.8 C 70 16 101/66 93 Room Air 07/25/25 07:42 36.7 C 71 18 111/63 93 Room Air all noted and reviewed including below
[2025-07-25] MEDS: SODIUM CHLORIDE 0.9% 1,000 ML IV SCH (15:49)
[2025-07-25] MEDS: BRIMONIDINE TARTRATE/TIMOLOL OP SCH (23:01)
[2025-07-26 07:21] VITALS: PULSE 54; RESP 16; TEMP 97.9; O2SAT 96
--- NOTE | 2025-07-26 08:50 | Discharge Summary ---
Date of Service July 26, 2025 Admission HPI Per Admitting Provider This is a 59-year-old male who presents with chronic persistent back and bilateral leg pain after failing course of nonoperative care is here for surgical intervention. Admission Exam (Per Admitting) Constitutional WD/WN, vitals as above Eyes normal visual neri by confrontation ENMT external ear and nose normal, oropharynx normal Neck normal visual inspection Respiratory normal respiratory effort Cardiovascular Extremities: normal capillary refill Gastrointestinal (Abdomen) Inspection/Auscultation: abdomen normal to inspection Musculoskeletal Spine: + pain with thoraco-lumbar ROM Extremities: extremities normal to inspection and strength 5/5 throughout Skin no rashes, warm and dry Neurologic normal touch/pain/proprioception and moves all extremities Psychiatric A+Ox3, euthymic affect Eye Contact: good eye contact Discharge Data Consultations 07/23/25 17:20 Consult Hospitalist Routine Procedures Performed Operation Date: 07/23/25 11:55 Actual Procedures p L3-L4, L4-L5, L5-S1 Decompression and Fusion(Not Applicable) - Jim Thompson, Hospital Course (1) Multilevel lumbosacral spondylosis with radiculopathy: Eder is being discharged home on postoperative day 3 status post L3-S1 decompression and fusion. He is doing well. Pain is controlled. Passing flatus. Ambulating several 100 feet in physical therapy plus the hallways. Discharge Instructions ACTIVITY RECOMMENDATIONS: SELF CARE INSTRUCTIONS AFTER THORACIC/LUMBAR FUSIONS 1. You may walk to your tolerance. It is good exercise for your legs and back. Expect some back and intermittent leg aches and pains. 2. You may perform "counter-top" level activities (make a sandwich, ida with a project, etc.). 3. No bending or lifting of more than 10 pounds or back twisting of any nature (roll like a log when turning in bed). 4. You may ride in a car for 20-30 minutes at a time. No driving until after your first visit with your doctor. 5. Frequent changes of position and restricting sitting to 30 minutes at a time will help limit the amount of back spasms and stiffness you may experience. 6. You may discontinue the use of ambulatory aids (cane, crutches, etc.) once your strength and confidence allow. 7. You may medical billing clerk the shower and let water strike your incision when you arrive home at least once daily. Do not take a tub bath, sit in a hot tub or go into a swimming pool until after your first recheck in the office. 8. You may resume previous diet. SPECIAL CARE INSTRUCTIONS: VERY IMPORTANT TO READ AND REVIEW A. Your surgical incision has been closed with a cosmetic suture under the skin that will dissolve in about 6 weeks. In 14 days, you can use a pair of clean scissors and cut the suture that is left outside of the skin at the ends of your incision. 1. The small skin tapes can be removed 7 days after surgery if they have not fallen off by that point. 2. You may keep the wound open to air as much as possible to promote healing after post-op day number 5 unless told otherwise by your doctor. 3. If you think the wound looks like it is becoming infected (redness or worsening drainage) and/or you are experiencing fever, chill or worsening back pain and muscle spasms, contact the office so that we may evaluate you as soon as possible. B. Complications are uncommon, but please contact us if you have any signs or symptoms of: 1. wound infection (fever higher than 102.5 degrees F, redness, separation of wound, drainage, or increasing pain from the incision) 2. blood clots in legs (pain, swelling, redness and warmth in legs) 3. urinary tract infection (fever higher than 102.5 degrees F, burning upon urination or increased frequency of urination) 4. nerve problems (inability to walk on your toes or heels, numbness, loss of bowel or bladder control) 5. any other symptoms that concern you C. Please call the office at if you have any concerns or questions about your operation or recovery. D. No smoking! Smoking drastically decreases the chance of a solid fusion. E. Do not take any anti-inflammatory medications (Indocin, Advil, Motrin, Aspirin, Naprosyn, etc.) as these may inhibit the chance of a solid fusion. Tylenol is okay to take for pain. MANAGING PAIN AFTER SPINAL SURGERY 1. Narcotic medication is intended for short-term use and will be provided for surgical pain. Surgical pain usually lasts for a period of 4-6 weeks. Narcotic medication includes Percocet, Vicodin, Darvocet, Tylenol #3 or Lortab. 2. Longer-term pain is more appropriately treated with non-narcotic medication such as Tylenol ES. 3. Muscle spasm is not appropriately treated with narcotics. Muscle relaxers such as Soma, Flexeril or Skelaxin can be used along with Tylenol ES. 4. Remember that we all live with some "aches and pains". This is not unusual or uncommon after an injury or as we get older. a. Back pain is expected and may include muscle spasms for 4 to 6 weeks after surgery. The pain should gradually improve. If the pain worsens for no apparent reason, please contact the office. b. Intermittent leg pain may also be experienced and should not be concerned about unless it worsens for no apparent reason. If so, please contact the office. 5. We will provide appropriate medication within the normal guidelines of their prescribed use. We will also be very cautious and aware of potential abuse and extended duration of patients' medication needs. a. Pain medications are for your comfort and to assist with sleep and rest so that the tissue can heal. They are not provided in order to return to normal activity and should not be used through the day. To do so or worsening pain at night can result from ongoing tissue damage and development of tolerance to the prescribed medicine. 6. Please allow 2-3 days to process refills. Prescriptions will not be mailed but must be picked up at the office. FOLLOW UP VISIT: Keep your scheduled follow-up appointment. Any questions, please call the office at .
[2025-07-26 09:41] VITALS: BP 125/75
== END 2025-07-26 11:22 | disposition home or self-care (01) | DRG 427 ==
LOC: ASU 08:53 → 3E 15:41